=== PATIENT | male | born 1995 | race African-American/Black ===

== ENCOUNTER 2017-03-21 18:14 | Emergency (ER) | payer BC, OTHER ==
[2017-03-21] MEDS ORDERED: IBUPROFEN 600 MG TABLET (FP) PO ONE ×2 (18:36→19:14)
--- NOTE | 2017-03-21 18:36 | PDOC ---
Rapid Medical Evaluation Time Seen by Provider: 03/21/17 18:34 Medical Evaluation: Allergies Allergy/AdvReac Type Severity Reaction Status Date / Time No Known Allergies Allergy Verified 03/21/17 18:34 03/21/17 18:34 I have performed a brief in person evaluation of this patient. The patient presents with chief complaint of : punched a wall with left hand now has swelling and pain Pertinent PE findings: swelling and pain to left hand I have ordered the following: xray left hand motrin 600mg The patient will proceed to the ER for further evaluation.
[2017-03-21 18:37] VITALS: BP 117/56; PULSE 73; TEMP 98.6; BMI 25.1
--- NOTE | 2017-03-21 19:22 | PDOC ---
History of Present Illness - General Chief Complaint: Injury Stated Complaint: INJURY Time Seen by Provider: 03/21/17 18:34 History Source: Patient Exam Limitations: No Limitations - History of Present Illness Initial Comments: 03/21/17 19:09 Punched a wall this afternoon approximately 1:00 and since that time has had pain swelling and mild immobility to his lateral aspect of his left hand. Patient is left-hand dominant Occurred: reports: just prior to arrival, this afternoon Severity: reports: moderate Pain Location: reports: upper extremity (left hand) Method of Injury: Yes: direct blow Loss of Consciousness: no loss of consciousness Associated Symptoms (Fall): denies symptoms Past History - Travel Traveled outside of the country in the last 30 days: No Close contact w/someone who was outside of country & ill: No - Past Medical History Allergies/Adverse Reactions: Allergies Allergy/AdvReac Type Severity Reaction Status Date / Time No Known Allergies Allergy Verified 03/21/17 18:34 COPD: No Other medical history: DENIES. - Suicide/Smoking/Psychosocial Hx Smoking History: Never smoked Trauma Specific PMHX - Complaint Specific PMHX Back Injury: No Neck Injury: No Review of Systems - Review of Systems Able to Perform ROS?: Yes Is the patient limited Setswana proficient: Yes Constitutional: Yes: Symptoms Reported, See HPI HEENTM: No: Symptoms Reported Respiratory: Yes: See HPI Musculoskeletal: Yes: Symptoms Reported, See HPI, Joint Pain, Joint Swelling Integumentary: Yes: Symptoms Reported, See HPI, Bruising All Other Systems: Reviewed and Negative *Physical Exam - Vital Signs Last Vital Signs Temp Pulse Resp BP Pulse Ox 98.6 F 73 19 117/56 98 03/21/17 18:34 03/21/17 18:34 03/21/17 18:34 03/21/17 18:34 03/21/17 18:34 - Physical Exam General Appearance: Yes: Nourished, Appropriately Dressed, Apparent Distress, Mild Distress HEENT: positive: MADDY, Normal ENT Inspection, TMs Normal, Pharynx Normal Neck: positive: Supple. negative: Tender Respiratory/Chest: positive: Lungs Clear, Normal Breath Sounds Musculoskeletal: positive: Normal Inspection, Decreased Range of Motion Extremity: positive: Normal Capillary Refill, Normal Inspection. 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 NML intact, Fully Oriented, Alert, Normal Mood/ Affect, Normal Response, Motor Strength 5/5 Procedures - Splinting Splint Location: Left: Hand (ulner gutter splint ) Pre-Proc Neuro Vasc Exam: normal Splint Type: Yes: Ulnar (gutter splint ) Post-Proc Neuro Vasc Exam: normal, unchanged from pre-exam Adilson Bandage: 4" Sling: Yes Progress Note - Progress Note Progress Note: Left boxer's fracture fifth metacarpal, ulnar gutter splint placed and will refer to orthopedist for casting *DC/Admit/Observation/Transfer Diagnosis at time of Disposition: Fracture of left hand Qualifiers: Encounter type: initial encounter Fracture type: closed Qualified Code(s): S62.92XA - Unspecified fracture of left wrist and hand, initial encounter for closed fracture - Discharge Dispostion Disposition: HOME Condition at time of disposition: Stable Admit: No - Referrals Referrals: Gil Macias [Primary Care Provider] - Lavell Steward MD [Staff Physician] - - Patient Instructions Printed Discharge Instructions: DI for a Hand Fracture Additional Instructions: Rest, ice to area on and off for 15 minutes 4-6 times a day Avoid heavy lifting or exercise until pain and swelling is resolved or until further directed Keep area highly elevated to reduce swelling Use splints/Adilson wrap as directed Followup with orthopedist in one to 2 days if not improving, if significantly improved may wait one week for followup with orthopedist May use ibuprofen 2-200 mg tablets every 6 hours as needed for pain - Post Discharge Activity Forms/Work/School Notes: Back to School
== END 2017-03-21 19:50 | disposition home or self-care (01) ==
LOC: JERFT 18:14
PROC: 2W3DX1Z Immobilization of Left Lower Arm using Splint (ICD-10-PCS; principal; 2017-03-21)
DX: S62.357A Nondisplaced fracture of shaft of fifth metacarpal bone, left hand, initial encounter for closed fracture (principal); W22.8XXA Striking against or struck by other objects, initial encounter; Y93.89 Activity, other specified; Y92.89 Other specified places as the place of occurrence of the external cause; Y99.8 Other external cause status
CPT/HCPCS: 73130-TC-LT; 99281-25

== ENCOUNTER 2020-07-26 11:04 | Emergency (ER) | payer OTHER, BC ==
[2020-07-26 11:08] VITALS: BP 107/73; PULSE 80; TEMP 97.1; BMI 21.7
== END 2020-07-26 12:20 | disposition home or self-care (01) ==
LOC: JERFT 11:04
DX: S00.83XA Contusion of other part of head, initial encounter (principal)
CPT/HCPCS: 99281-25